=== PATIENT | male | born 1945 | race Hispanic/Latino ===

== ENCOUNTER 2023-05-16 08:13 | Observation (INO) | payer MEDICARE ==
[2023-05-14 15:03] LABS: BASOPHILS % (AUTO) 0.4 % (0.0-5.0); EOSINOPHILS % (AUTO) 0.7 % (0.0-8.0); HEMATOCRIT 44.2 % (42-54); LYMPHOCYTES % (AUTO) 18.7 % (21.0-51.0); MEAN CORPUSCULAR HEMOGLOBIN 32.4 pg (27.0-33.0); MEAN CORPUSCULAR HGB CONC 34.2 g/dL (32.0-36.0); MEAN CORPUSCULAR VOLUME 94.8 fL (79-99); MONOCYTES % (AUTO) 9.2 % (3.0-13.0); NEUTROPHILS % (AUTO) 70.7 % (40.0-77.0); PLATELET COUNT (AUTO) 136 K/uL (130-400); RED BLOOD CELL COUNT(AUTO) 4.66 MIL/uL (4.50-6.20); RED CELL DISTRIBUTION WIDTH 13.1 % (11.0-15.5); WHITE BLOOD COUNT (AUTO) 7.7 K/uL (4.8-10.8)
[2023-05-14 15:04] LABS: APPEARANCE,URINE CLEAR (CLEAR); BILIRUBIN,URINE NEGATIVE (NEGATIVE); COLOR,URINE LIGHT-YELLOW (YELLOW); GLUCOSE, URINE (UA) NEGATIVE (NEGATIVE); KETONES,URINE NEGATIVE (NEGATIVE); LEUKOCYTE ESTERASE ,URINE NEGATIVE Leu/uL (NEGATIVE); NITRATE,URINE NEGATIVE (NEGATIVE); OCCULT BLOOD,URINE NEGATIVE (NEGATIVE); PROTEIN,URINE NEGATIVE (NEGATIVE); UROBILINOGEN,URINE 0.2 mg/dL (0.2-1.0)
[2023-05-14 15:21] LABS: CREATININE 1.3 mg/dL (0.5-1.5); INR 1.03 (0.85-1.15); PROTHROMBIN TIME 11.9 SEC (9.6-11.6)
[2023-05-14 15:22] LABS: PARTIAL THROMBOPLASTIN TIME 30.7 SEC (26.3-35.5)
[2023-05-14 15:23] LABS: WBC,URINE 0-1 /HPF (0-1)
[2023-05-14 15:46] LABS: B-TYPE NATRIURETIC PEPTIDE 53 pg/mL (0-100)
[2023-05-15 11:53] VITALS: BP 135/57
[~2023-05-16] VITALS: Ht 162.6 cm; Wt 97.5 kg
[2023-05-16] VITALS (10 sets, daily range): BP systolic 103–145; BP diastolic 58–80
[~2023-05-16 08:13] MED LIST: AEC81 PO; LATA2.5D14 OU; LEVE500T19 PO; LISI40TA9 PO; MVIT PO; RIVA2.5T PO; ROSU20TA73 PO; SENN8.6T20 PO; vitamin d PO
[2023-05-16] MEDS ORDERED: LIDOCAINE HCL 400MG/20ML VIAL ONE (13:16)
[2023-05-16] MEDS ORDERED: SODIUM BICARB 50MEQ 50ML VIAL 50 ML ONE (13:16)
[2023-05-16] MEDS ORDERED: MIDAZOLAM HCL 1 MG/ML 2ML VIAL ONE (13:16)
[2023-05-16] MEDS ORDERED: FENTANYL CITRATE PF 50 MCG/1 ML 2ML VIAL ONE (13:16)
[2023-05-16] MEDS ORDERED: NITROGLYCERIN 50MG VIAL ONE (13:17)
[2023-05-16] MEDS ORDERED: HEPARIN 10,000 UNIT/10ML (1,000 UNIT/ML) VIAL ONE (13:17)
[2023-05-16] MEDS ORDERED: IODIXANOL 320 MG/ML 100 ML VIAL ONE (13:17)
[2023-05-16] MEDS ORDERED: CLOPIDOGREL 300MG TAB ONE (15:49)
[2023-05-16] MEDS ORDERED: 0.9%NACL 1000ML 1,000 ML IV SCH (16:30)
[2023-05-16] MEDS: LEVETIRACETAM 500 MG TABLET PO SCH (20:57)
[2023-05-16] MEDS ORDERED: LATANOPROST 2.5 ML DROPS OU SCH (21:00)
[2023-05-16] MEDS ORDERED: NON-FORMULARY MEDICATION 1 EACH (Rosuvastatin Calcium 20 MG) PO SCH (21:00)
[2023-05-16] MEDS ORDERED: ATORVASTATIN 40 MG TABLET PO SCH (21:00)
[2023-05-16 21:35] LABS: HEMATOCRIT 38.7 % (42-54)
[2023-05-17 03:49] VITALS: BP 115/60
[2023-05-17 04:55] LABS: HEMATOCRIT 41.5 % (42-54); MEAN CORPUSCULAR HEMOGLOBIN 32.3 pg (27.0-33.0); MEAN CORPUSCULAR VOLUME 95.2 fL (79-99); RED BLOOD CELL COUNT(AUTO) 4.36 MIL/uL (4.50-6.20); WHITE BLOOD COUNT (AUTO) 7.6 K/uL (4.8-10.8)
[2023-05-17 05:24] LABS: CREATININE 1.1 mg/dL (0.5-1.5); POTASSIUM 4.8 mmol/L (3.5-5.1)
[2023-05-17 08:00] VITALS: BP 136/66
[2023-05-17] MEDS ORDERED: CLOP75TA32 PO (08:57)
[2023-05-17] MEDS ORDERED: ASPIRIN 81MG CHEW TAB PO SCH (09:00)
[2023-05-17] MEDS ORDERED: ASPIRIN 81 MG EC TAB PO SCH (09:00)
[2023-05-17] MEDS ORDERED: MULTIVITAMIN TABLET PO SCH (09:00)
[2023-05-17] MEDS ORDERED: LISINOPRIL 40 MG TABLET PO SCH (09:00)
[2023-05-17] MEDS ORDERED: VITAMIN D PO SCH (09:00)
[2023-05-17] MEDS ORDERED: CLOPIDOGREL 75MG TAB PO SCH (09:00)
[2023-05-17] MEDS: LEVETIRACETAM 500 MG TABLET PO SCH (09:40)
== END 2023-05-17 12:45 | disposition home or self-care (01) ==
LOC: DAH 08:13 → DAHIP 08:14 → 3AH 18:20
PROVIDERS: ADMIT Internal Medicine Cardiovascular Disease; ATTEND Internal Medicine Cardiovascular Disease
DX: I73.9 Peripheral vascular disease, unspecified (principal); Z79.899 Other long term (current) drug therapy
CPT/HCPCS: 80048 ×2; 83880; 85025; 85610; 85730; 81001; 36415 ×3; 71045; 93005; 75774; 75710; 37228; 85014; 85018; 80061; 85027; C1894 ×2; C1769 ×3; C1760; C1893; C1887 ×2; C1725 ×4; C1724; G0378 ×21; J3010; J3490 ×3; J7030; J1644 ×2; J2250; Q9967; A4215; A4223 ×3; A4222; A4663; A4606; 75716; 99156; 99157

== ENCOUNTER 2023-07-02 08:29 | Day surgery (SDC) | payer MEDICARE ==
[2023-06-28 10:08] LABS: APPEARANCE,URINE CLEAR (CLEAR); BILIRUBIN,URINE NEGATIVE (NEGATIVE); COLOR,URINE YELLOW (YELLOW); GLUCOSE, URINE (UA) NEGATIVE (NEGATIVE); KETONES,URINE NEGATIVE (NEGATIVE); LEUKOCYTE ESTERASE ,URINE NEGATIVE Leu/uL (NEGATIVE); NITRATE,URINE NEGATIVE (NEGATIVE); OCCULT BLOOD,URINE NEGATIVE (NEGATIVE); PH,URINE 6.5 (5.0-8.0); PROTEIN,URINE NEGATIVE (NEGATIVE); UROBILINOGEN,URINE 0.2 mg/dL (0.2-1.0)
[2023-06-28 10:09] LABS: ADD UA MICROSCOPIC NO
[2023-06-28 11:12] LABS: CREATININE 1.1 mg/dL (0.5-1.5); POTASSIUM 4.8 mmol/L (3.5-5.1)
[2023-06-28 11:29] LABS: B-TYPE NATRIURETIC PEPTIDE 67 pg/mL (0-100); INR 1.1 (0.85-1.15); PROTHROMBIN TIME 12.7 SEC (9.6-11.6)
[2023-06-28 11:30] LABS: PARTIAL THROMBOPLASTIN TIME 35.3 SEC (26.3-35.5)
[2023-06-28 11:32] LABS: BASOPHILS # (AUTO) 0.04 K/uL (0.00-0.20); BASOPHILS % (AUTO) 0.7 % (0.0-5.0); EOSINOPHILS # (AUTO) 0.14 K/uL (0.00-0.70); EOSINOPHILS % (AUTO) 2.4 % (0.0-8.0); HEMATOCRIT 42.7 % (42-54); IMMATURE GRANULOCYTE ABSOLUTE 0.01 K/uL (0-1); LYMPHOCYTES # (AUTO) 1.5 K/uL (1.0-4.8); LYMPHOCYTES % (AUTO) 25.3 % (21.0-51.0); MEAN CORPUSCULAR HEMOGLOBIN 32.3 pg (27.0-33.0); MEAN CORPUSCULAR HGB CONC 34.4 g/dL (32.0-36.0); MEAN CORPUSCULAR VOLUME 93.8 fL (79-99); MONOCYTES # (AUTO) 0.7 K/uL (0.1-1.0); MONOCYTES % (AUTO) 11.7 % (3.0-13.0); NEUTROPHILS # (AUTO) 3.5 K/uL (1.8-7.7); NEUTROPHILS % (AUTO) 59.7 % (40.0-77.0); PLATELET COUNT (AUTO) 140 K/uL (130-400); RED BLOOD CELL COUNT(AUTO) 4.55 MIL/uL (4.50-6.20); RED CELL DISTRIBUTION WIDTH 12.7 % (11.0-15.5); WHITE BLOOD COUNT (AUTO) 5.9 K/uL (4.8-10.8)
[2023-06-29 10:34] VITALS: BP 139/69; PULSE 53; RESP 20
[2023-07-02] VITALS (8 sets, daily range): BP systolic 132–138; BP diastolic 58–70; PULSE 47–60; RESP 10–18
[~2023-07-02] VITALS: Ht 162.6 cm; Wt 96.7 kg
[~2023-07-02 08:29] MED LIST changes: +CLOP75TA32 PO
[2023-07-02] MEDS ORDERED: 0.9%NACL 1000ML 1,000 ML IV ONE (09:02)
[2023-07-02] MEDS ORDERED: LIDOCAINE HCL 400MG/20ML VIAL ONE (12:03)
[2023-07-02] MEDS ORDERED: NITROGLYCERIN 50MG VIAL ONE (12:04)
[2023-07-02] MEDS ORDERED: HEPARIN 10,000 UNIT/10ML (1,000 UNIT/ML) VIAL ONE (12:04)
[2023-07-02] MEDS ORDERED: IODIXANOL 320 MG/ML 100 ML VIAL ONE (12:04)
[2023-07-02] MEDS ORDERED: SODIUM BICARB 50MEQ 50ML VIAL 50 ML ONE (12:04)
[2023-07-02] MEDS ORDERED: MIDAZOLAM HCL 1 MG/ML 2ML VIAL ONE (12:20)
[2023-07-02] MEDS ORDERED: FENTANYL CITRATE PF 50 MCG/1 ML 2ML VIAL ONE (12:20)
[2023-07-02] MEDS ORDERED: 0.9% NACL 500ML IV.SOLN 500 ML IV SCH (14:00)
== END 2023-07-02 17:45 | disposition home or self-care (01) ==
LOC: DAH 08:29
PROVIDERS: ATTEND Internal Medicine Cardiovascular Disease
DX: I70.211 Atherosclerosis of native arteries of extremities with intermittent claudication, right leg (principal); I70.92 Chronic total occlusion of artery of the extremities; I70.248 Atherosclerosis of native arteries of left leg with ulceration of other part of lower leg; I10 Essential (primary) hypertension; E78.5 Hyperlipidemia, unspecified; E66.9 Obesity, unspecified; G25.81 Restless legs syndrome; Z79.01 Long term (current) use of anticoagulants; Z79.899 Other long term (current) drug therapy; Z79.82 Long term (current) use of aspirin; Z90.49 Acquired absence of other specified parts of digestive tract; Z98.890 Other specified postprocedural states; Z82.49 Family history of ischemic heart disease and other diseases of the circulatory system; Z68.34 Body mass index [BMI] 34.0-34.9, adult
CPT/HCPCS: 80048; 83880; 85025; 85610; 85730; 81003; 36415; 71045; 93005; 75716; 36247; C1894 ×2; C1760; C1893; C1769; J3010; J3490 ×3; J7030; J2250; J1644; Q9967; A4215; A4222; A4221; A4663; A4216; A4606; A4223 ×3; 36246; 75710; 96360; 96361; 99156; 99157